=== PATIENT | male | born 1975 | race Two or more races ===

== ENCOUNTER 2021-08-13 16:05 | Emergency (ER) | payer OTHER ==
[~2021-08-13] VITALS: Ht 182.9 cm; Wt 86.6 kg
== END 2021-08-13 19:12 | disposition home or self-care (01) ==
LOC: ER 16:05
DX: I83.013 Varicose veins of right lower extremity with ulcer of ankle (principal)

== ENCOUNTER 2021-08-26 08:10 | Outpatient (CLI) | payer OTHER | END 2021-08-26 08:14 | disposition home or self-care (01) | LOC: NUCLEAR 08:10 | PROVIDERS: ATTEND Internal Medicine Cardiovascular Disease | DX: I34.1 Nonrheumatic mitral (valve) prolapse (principal) ==

== ENCOUNTER 2021-08-26 16:01 | Emergency (ER) | payer OTHER ==
[~2021-08-26] VITALS: Ht 182.9 cm; Wt 92.5 kg
== END 2021-08-26 21:22 | disposition home or self-care (01) ==
LOC: ER 16:01
DX: M54.2 Cervicalgia (principal); Z86.79 Personal history of other diseases of the circulatory system

== ENCOUNTER 2021-08-30 01:34 | Emergency (ER) | payer OTHER ==
[~2021-08-30] VITALS: Ht 182.9 cm; Wt 108.9 kg
== END 2021-08-30 07:54 | disposition home or self-care (01) ==
LOC: ER 01:34
DX: R53.83 Other fatigue (principal); R00.2 Palpitations; Z20.822 Contact with and (suspected) exposure to COVID-19